=== PATIENT | male | born 1960 | race Caucasian/White ===

== ENCOUNTER 2023-01-18 04:03 | Day surgery (SDC) | payer OTHER ==
[2023-01-17 15:09] VITALS: BMI 28.1
[2023-01-18 11:35] VITALS: TEMP 97.9
[2023-01-18 12:18] VITALS: BP 117/78; PULSE 58; RESP 18
== END 2023-01-18 12:15 | disposition home or self-care (01) ==
LOC: JASU-ENDO 04:03
PROVIDERS: ATTEND Internal Medicine Gastroenterology
PROC: 0DB78ZX Excision of Stomach, Pylorus, Via Natural or Artificial Opening Endoscopic, Diagnostic (ICD-10-PCS; 2023-01-18)
PROC: 0DB68ZX Excision of Stomach, Via Natural or Artificial Opening Endoscopic, Diagnostic (ICD-10-PCS; 2023-01-18)
PROC: 0DB98ZX Excision of Duodenum, Via Natural or Artificial Opening Endoscopic, Diagnostic (ICD-10-PCS; principal; 2023-01-18 09:30)
DX: K31.7 Polyp of stomach and duodenum (principal); K29.80 Duodenitis without bleeding; K21.00 Gastro-esophageal reflux disease with esophagitis, without bleeding; K44.9 Diaphragmatic hernia without obstruction or gangrene; E11.9 Type 2 diabetes mellitus without complications; Z79.84 Long term (current) use of oral hypoglycemic drugs
CPT/HCPCS: 82962; 88305-TC; 88312-TC; 88342-TC

== ENCOUNTER 2023-03-06 05:07 | Day surgery (SDC) | payer OTHER ==
[2023-03-02 07:55] VITALS: BMI 28.8
[2023-03-06 11:21] VITALS: TEMP 98.2
[2023-03-06 11:51] VITALS: BP 118/80; PULSE 56; RESP 20
== END 2023-03-06 11:52 | disposition home or self-care (01) ==
LOC: JASU-ENDO 05:07
PROVIDERS: ATTEND Internal Medicine Gastroenterology
PROC: 0DBN8ZX Excision of Sigmoid Colon, Via Natural or Artificial Opening Endoscopic, Diagnostic (ICD-10-PCS; principal; 2023-03-06 10:30)
DX: Z12.11 Encounter for screening for malignant neoplasm of colon (principal); D12.5 Benign neoplasm of sigmoid colon
CPT/HCPCS: 82962; 88305-TC

== ENCOUNTER 2023-04-03 05:02 | Day surgery (SDC) | payer OTHER ==
[2023-03-09 12:09] VITALS: BMI 28.8
[2023-04-03 10:18] VITALS: TEMP 97.7
[2023-04-03 10:25] VITALS: RESP 16
[2023-04-03 11:11] VITALS: BP 122/84; PULSE 60
== END 2023-04-03 11:12 | disposition home or self-care (01) ==
LOC: JASU-ENDO 05:02
PROVIDERS: ATTEND Internal Medicine Gastroenterology
PROC: 0DB78ZX Excision of Stomach, Pylorus, Via Natural or Artificial Opening Endoscopic, Diagnostic (ICD-10-PCS; 2023-04-03)
PROC: 0DB48ZX Excision of Esophagogastric Junction, Via Natural or Artificial Opening Endoscopic, Diagnostic (ICD-10-PCS; principal; 2023-04-03 10:15)
DX: K21.00 Gastro-esophageal reflux disease with esophagitis, without bleeding (principal); K22.2 Esophageal obstruction; K44.9 Diaphragmatic hernia without obstruction or gangrene; K29.50 Unspecified chronic gastritis without bleeding; E11.9 Type 2 diabetes mellitus without complications; Z79.84 Long term (current) use of oral hypoglycemic drugs
CPT/HCPCS: 82962; 88305-TC; 88342-TC